=== PATIENT | female | born 1950 | race Caucasian/White ===

== ENCOUNTER 2017-02-23 21:03 | Inpatient (IN) | payer MEDICARE, BC ==
--- NOTE | ~2017-02-23 | HP ---
History And Physical [place] [id number] [place]. [address] NAME: ELIZA REYNA : 48 STATUS : ADM Jorge A PAT#: [id number] AGE: 67 ADM/REG DATE : 02/23/17 MR#: [id number] REPORT SERV DATE: 02/24/17 DICTATED BY: JOY JAMES DATE: 02/24/17 REPORT STATUS : Draft TRANSCRIBED BY: MODL DATE: 02/24/17 DATE OF ADMISSION: 02/23/2017 CHIEF COMPLAINT: A 67-year-old female with dermatomyositis, now presenting with increasing myalgias, weakness, and urinary urgency. HISTORY OF PRESENT ILLNESS: The patient's history was obtained through careful interview with patient and her coupled with review of [facility] medical records. The patient has chronic dermatomyositis. It seems to have been under relatively good control over the last several years though is followed outpatient by Dr. Radha Hernandez, repossession agent, and patient is on chronic steroids for control of this condition as well as monthly IVIG infusions. About 10 days ago, she began to develop increasing urinary frequency with increasing urinary urgency as well and had begun to develop some body aches. She went to see one of her physicians and was placed on Macrobid after urinalysis suggested urinary tract infection. Despite being on Macrobid, the patient has only had continued urinary frequency, urgency, and now has a hot discomfort with her urine. Also, her body aches have worsened. She describes them as mostly in her proximal legs and shoulders and arms as well as her back. She has an element of chronic cramping discomfort but it has acutely worsened by this illness, an aching, cramping quality, 9/10 severity that has been continuous for about 48 hours, and the family states that the patient has really only slept possibly four hours in the last two nights, She has had nausea, but no vomiting, no diarrhea. No fevers or chills. No confusion. No lightheadedness. No abdominal pain. No flank tenderness. No rash. She has chronic shortness of breath related to pulmonary purposes that is stable and a chronic cough that is also stable. No chest pain. REVIEW OF SYSTEMS: Otherwise, a 14-point review of systems was obtained and was negative. PAST MEDICAL HISTORY: 1. Dermatomyositis, seen by Dr. Radha Hernandez. 2. Chronic interstitial lung disease with pulmonary fibrosis, on chronic 3 to 8 L nasal cannula, seen by Dr. Medina. 3. 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 4. Recurrent urinary tract infection with history of sepsis in 11/2015 and 12/2015. She had Klebsiella at greater than 100,000 colonies and a recent urine culture on 02/19/2017 also showed Klebsiella. 5. Hypertension. 6. Leukocytosis, chronically. History And Physical [address] [address] NAME: ELIZA REYNA : [birth year] STATUS : ADM Jorge A PAT#: [id number] AGE: 67 ADM/REG DATE : 02/23/17 MR#: [id number] REPORT SERV DATE: 02/24/17 DICTATED BY: JOY JAMES DATE: 02/24/17 REPORT STATUS : Draft TRANSCRIBED BY: KETURAH DATE: 02/24/17 PAST SURGICAL HISTORY: 1. Hysterectomy with oophorectomy. 2. Cholecystectomy. 3. Partial small bowel resection for small bowel obstruction by Dr. Calvin. 4. Right thyroid mass. Check resection. ALLERGIES: DAPSONE. SOCIAL HISTORY: No tobacco abuse. No alcohol abuse. Next week, the patient will have been to her for 50 years. They live in [place], [place]. They have one son, who lives in the [facility]. They have three grandsons. FAMILY HISTORY: COPD, Parkinson disease, and diabetes. No family history of rheumatological disorder. No polymyositis. CURRENT MEDICATIONS: Include aspirin 81 mg p.o. daily; vitamin D IVIG monthly, last dose was on 02/13/2017; Prevacid 30 mg p.o. daily; Lopressor 25 mg p.o. b.i.d.; Macrobid 100 mg p.o. b.i.d., started on 02/21/2017; Zofran p.r.n.; prednisone 10 mg p.o. b.i.d.; Phenergan 25 mg p.r.n.; Senokot; Forteo 20 mcg subcutaneous in the morning; Ultram 100 mg p.o. q.8 hours p.r.n.; calcium and magnesium supplements. PHYSICAL EXAMINATION: VITAL SIGNS: Temperature 98.2, pulse 86, blood pressure 180/87, respiratory rate 18, and O2 saturation 94% on 3 L nasal cannula. GENERAL: A pleasant, cooperative female. She describes distressed from her cramping discomfort. HEENT: Pupils equal, round, and reactive to light. No conjunctival pallor. No scleral icterus. Nares are patent. Oropharynx is clear of obstruction. Dry mucous membranes. NECK: Trachea midline. No thyromegaly. LYMPH: No cervical lymphadenopathy. No supraclavicular lymphadenopathy. RESPIRATORY: The patient has scattered dry crackles on examination. No rales, no wheezes, a nonlabored respiratory effort. CARDIOVASCULAR: Regular rate and rhythm. No murmurs, rubs, or gallops. No extremity edema is appreciated. ABDOMEN: Soft, nontender, nondistended. No flank tenderness. No hepatosplenomegaly. DERMATOLOGIC: Warm and dry extremities. No pallor, no cyanosis. PSYCHIATRIC: Normal affect. Good mood. Alert and oriented x3. LABORATORY DATA: White blood cell count 12.7, hemoglobin 9.9, hematocrit 33.4, and platelets 343. Sodium 137, potassium 4.6, chloride 97, bicarb 33, BUN 20, creatinine 0.78, glucose 119. Urinalysis shows a large leukocyte esterase, positive nitrites, and greater than 182 white blood cells. Liver enzymes within normal limits. Albumin 2.8. STUDIES: Chest x-ray by my own evaluation shows chronic interstitial lung disease and fibrosis but stable compared to old x-ray. History And Physical [address] [address] NAME: ELIZA REYNA : 48 STATUS : ADM Jorge A PAT#: [id number] AGE: 67 ADM/REG DATE : 02/23/17 MR#: [id number] REPORT SERV DATE: 02/24/17 DICTATED BY: JOY JAMES DATE: 02/24/17 REPORT STATUS : Draft TRANSCRIBED BY: KETURAH DATE: 02/24/17 ASSESSMENT AND PLAN: 1. Urinary tract infection. Check urine culture. Place on IV antibiotics. The patient "failed" outpatient Macrobid. 2. Dermatomyositis, seen outpatient by Dr. Radha Hernandez, repossession agent. Check an ESR. Check CPK. Check myoglobin. The patient on chronic steroids and chronic monthly IVIG. 3. Pulmonary fibrosis, oxygen dependent, seems stable. 4. Myalgias, question possible activity of polymyositis or myalgias caused by urinary tract infection. We will monitor closely. KPL/MODL Joy James M.D. / [id number] CC: Steve Ryan Jr, MD Ted Scoggins, M.D. Suzan E House, M.D.
--- NOTE | ~2017-02-23 | DS ---
Discharge Summary [facility] [address] [place]. [address] NAME: ELZIA REYNA : 48 STATUS : DIS IN PAT#: [id number] AGE: 67 ADM/REG DATE : 02/24/17 MR#: [id number] REPORT SERV DATE: 03/01/17 DICTATED BY: GURMEET FRIAS DATE: 02/28/17 REPORT STATUS : Draft TRANSCRIBED BY: KETURAH DATE: 02/28/17 ADMISSION DATE: 02/24/2017 DISCHARGE DATE: 02/28/2017 PROCEDURES DONE: 1. On 02/23/2017, chest x-ray: No acute cardiopulmonary disease. Stable right Port-A-Cath with tip over the SVC. Stable cholecystectomy. Lung volumes with findings suggestive of chronic interstitial lower lobe lung disease. Review of the chest CT in 02/2017, shows severe lower lobe interstitial fibrosis with honeycombing. 2. On 02/25/2017, 2D echo: Normal left ventricular systolic function with calculated EF of 55%. Mild left ventricular hypertrophy. Mild diastolic dysfunction. Normal right ventricular size and systolic function. Mild aortic and tricuspid valvular regurgitation. Right ventricular systolic pressure consistent with moderate pulmonary hypertension. Right ventricular systolic pressure is 47 mmHg. REASON FOR ADMISSION: Increasing weakness, myalgias, and urinary frequency. HISTORY OF HOSPITAL STAY: A 67-year-old white female with past medical history of chronic interstitial lung disease with pulmonary fibrosis, dermatomyositis, history of CMV colitis, hypertension, presenting with weakness, increasing myalgias, and urinary urgency. The patient has been admitted for further evaluation of her chief complaint. The patient is on longstanding steroids secondary to her dermatomyositis. The patient does have chronic oxygen secondary to chronic interstitial lung disease. Unfortunately, the patient started having weakness which was much more significant since the patient has a chronic interstitial lung disease with pulmonary fibrosis. The patient states that her oxygen requirements were high during walking and mobilization, but unfortunately her weakness has made mobility even worse. The patient turned out to have a UTI secondary to Klebsiella pneumonia. The patient was being treated the E. coli on an outpatient basis. The patient was started on nitrofurantoin. Unfortunately, the patient's Klebsiella pneumonia was resistant. The patient was started on Levaquin. Eventually, the patient's dysuria gradually resolved. DISPOSITION: The patient is feeling fine, no complaints. ACTIVITY: As tolerated. DIET: Regular. INSTRUCTIONS UPON DISCHARGE: The patient to follow with Rheumatology within one to two weeks' time. MEDICATIONS UPON DISCHARGE: 1. Norvasc 5 mg p.o. daily, dispensed 30. 2. Metoprolol 50 mg p.o. daily. 3. Levaquin 750 mg p.o. daily x5 days. 4. Florastor 250 mg p.o. daily, dispensed 10. 5. Aspirin 81 mg p.o. daily. Discharge Summary [address] [address] NAME: ELIZA REYNA : 48 STATUS : DIS IN PAT#: [id number] AGE: 67 ADM/REG DATE : 02/24/17 MR#: [id number] REPORT SERV DATE: 03/01/17 DICTATED BY: GURMEET FRIAS DATE: 02/28/17 REPORT STATUS : Draft TRANSCRIBED BY: KETURAH DATE: 02/28/17 6. Vitamin D3 2,000 units p.o. daily. 7. Senokot one tablet p.o. daily p.r.n. for constipation. 8. Prednisone 10 mg p.o. b.i.d. 9. Prevacid 30 mg p.o. daily. 10.Forteo pen 20 mcg subcu daily. 11.Zofran 8 mg p.o. daily p.r.n. 12.Phenergan 25 mg p.o. q.8 hours p.r.n. 13.Calcium-magnesium 200/50 mg one tablet p.o. daily. 14.Immunoglobulin IV daily x2 days, every 28 days. 15.Ultram 100 mg p.o. q.8 hours p.r.n. for pain. 16.Phenergan 25 mg per rectal q.8 hours p.r.n. DIAGNOSES UPON DISCHARGE: 1. Myalgias, weakness, urinary urgency secondary to urinary tract infection. 2. Urinary tract infection secondary to Klebsiella pneumonia. 3. Constipation. 4. Pulmonary fibrosis. 5. Dermatomyositis. 6. Chronic respiratory failure secondary to pulmonary fibrosis. 7. Hypertension. DEISY/KETURAH Gurmeet Frias MD / [id number] CC: MD Tyler Bran M.D.
[~2017-02-23 21:03] MED LIST: ACET500CAP PO; ACETSUP650 PR; ADVIL PO; AFRIN15 NAS; AMB5 PO; ASAB PO; ATROVENTUD INH; AYR SALINE NAS; BACDS PO; BION TEARS OPH; CALCIUM PO; CALCIUM/MAGNESIUM PO; CALTRA600D PO; CELLCEPT5 PO; DSS PO; DULERA 200 MCG/13 GM INH; DUONEB INH; FLONASE NAS; FOLIC PO; FOSAMAX70 MG PO; HALF81 PO; HEPARIN INJ5000 U/ML IV; HUMI PO; HYCODAN1 M1 PO; IVIG IV; IVIGLIQ IJ; LOP25 PO; MACRODANTIN 10100 MG PO; MAG PO; MELA3 PO; MINOCIN100 PO; MIRALAXPKT PO; MOMUD PO; MTX2.5 PO; MULTI-VIT HP OR; MYCOSCROI TOP; N-ACETYL-L-CYSTEINE PO; NINTEDANIB PO; NORCO1 TA1 PO; OFEV PO; P10 PO; P20 PO; P5 PO; PLAQ200B PO; PR25 PO; PREV30 PO; PRILO PO; PRIN10 PO; PROAIR HFA INH; PROGRAF1 PO; PROTONIX PO; STOOL SOFTEN100 MG PO; SULFAMETHOXAZOLE; SYMBICORT 160/41 INH INH; T PO; TESS PO; TUSSIONEX1 ML PO; ULTRAM50 PO; VALCYTE PO; VENTOLIN HFA INH; VITAMIN D1000 UNI1 PO; VITAMIN D2000 UNIT PO; VITAMIN D31000 UNIT PO; VITD PO; ZANTAC 150 PO; ZANTAC300 MG PO; ZITH250 PO; ZOFRAN4 PO; ZOFRAN8 PO; [UNRECOGNIZED DRUG - OTHER] IJ; [UNRECOGNIZED DRUG - OTHER] PO; [UNRECOGNIZED DRUG - OTHER] PO
[2017-02-23 22:49] LABS: BASOPHILS 0 %; EOSINOPHILS 0 %; HEMATOCRIT 33.4 % (36.0-48.0); HEMOGLOBIN 9.9 g/dL (12.0-16.0); IMMATURE GRANULOCYTES 0.3 %; IMMATURE GRANULOCYTES ABSOLUTE 0.04 10/3/uL (0.0-0.11); LYMPHOCYTES 10.7 %; LYMPHOCYTES ABSOLUTE 1.36 10/3/uL (0.67-4.30); MEAN CORPUS HGB CONC 29.6 g/dL (32.0-36.0); MEAN CORPUSCULAR HEMOGLOB 23.9 pg (26.0-34.0); MEAN CORPUSCULAR VOLUME 80.5 fL (80-100); MEAN PLATELET VOLUME 8.8 fL (9.2-13.0); MONOCYTES ABSOLUTE 0.64 10/3/uL (0.21-1.20); NEUTROPHILS ABSOLUTE 10.68 10/3/uL (2.02-8.40); PLATELET COUNT 343 10/3/uL (150-400); RBC DISTRIBUTION WIDTH 18.1 % (12.0-16.0); RED CELL COUNT 4.15 10/6/uL (4.0-5.6)
[2017-02-23 22:52] LABS: ER CBC TAT 0 Hrs 08 Mins; MANUAL DIFF NO %; WHITE BLOOD CELLS 12.7 10/3/uL (4.5-10.5)
[2017-02-23 23:01] LABS: ASCORBIC ACID (UR NOT ORDER) NEG (NEG); BILIRUBIN, URINE NEGATIVE (NEG); KETONE, URINE TRACE MG/DL (NEG); LEUKOCYTE ESTERASE(NOT OR LARGE (NEG); NITRITE (URINE) POS (NEG); WBC (NOT ORDERED) (RFLEX) > 182 (0-5)
[2017-02-23 23:08] LABS: A/G RATIO 0.5 (0.7-1.9); ALBUMIN 2.8 G/DL (3.5-5.0); ALKALINE PHOSPHATASE 71 U/L (45-117); BUN (BLOOD UREA NITROGEN) 20 MG/DL (6-23); CALCIUM, SERUM 8.8 MG/DL (8.5-10.4); CHLORIDE, SERUM 97 MMOL/L (96-112); CO2 (CARBON DIOXIDE) 33 MMOL/L (24-34); CREATININE 0.78 MG/DL (0.55-1.02); GFR AFRICAN AMERICAN 91 ML/MIN (>=60); GFR NON AFRICAN AMERICAN 78 ML/MIN (>=60); GLOBULIN 5.1 G/DL (2.5-4.1); GLUCOSE, SERUM 119 MG/DL (60-99); POTASSIUM, SERUM 4.6 MMOL/L (3.5-5.3); SGOT(AST) 20 U/L (5-40); SGPT(ALT) 23 U/L (5-65); SODIUM, SERUM 137 MMOL/L (135-148); TOTAL BILIRUBIN 0.4 MG/DL (0-1.2); TOTAL PROTEIN 7.9 G/DL (6.0-8.5)
[2017-02-23] MEDS ORDERED: MACROBID PO (23:59)
[2017-02-24] MEDS ORDERED: P10 PO (00:01)
[2017-02-24] MEDS ORDERED: LOP25 PO (00:03)
[2017-02-24] MEDS ORDERED: FORTEO SC (00:04)
[2017-02-24] MEDS ORDERED: PREV30 PO (00:04)
[2017-02-24] MEDS ORDERED: PR25 PO (00:05)
[2017-02-24] MEDS ORDERED: ZOFRAN8 PO (00:05)
[2017-02-24] MEDS ORDERED: ASAB PO (00:05)
[2017-02-24] MEDS ORDERED: VITAMIN D31000 UNIT PO (00:06)
[2017-02-24] MEDS ORDERED: MAG PO (00:06)
[2017-02-24] MEDS ORDERED: CAL PO (00:06)
[2017-02-24] MEDS ORDERED: IVIGLIQ IV (00:07)
[2017-02-24] MEDS ORDERED: ULTRAM50 PO (00:09)
[2017-02-24] MEDS ORDERED: PR25R PR (00:10)
[2017-02-24] MEDS ORDERED: SENTAB PO (00:12)
[2017-02-24 05:23] LABS: BASOPHILS 0 %; EOSINOPHILS 0 %; HEMATOCRIT 32.8 % (36.0-48.0); HEMOGLOBIN 9.8 g/dL (12.0-16.0); IMMATURE GRANULOCYTES 0.4 %; IMMATURE GRANULOCYTES ABSOLUTE 0.04 10/3/uL (0.0-0.11); LYMPHOCYTES 14.7 %; LYMPHOCYTES ABSOLUTE 1.63 10/3/uL (0.67-4.30); MEAN CORPUS HGB CONC 29.9 g/dL (32.0-36.0); MEAN CORPUSCULAR VOLUME 80.4 fL (80-100); MEAN PLATELET VOLUME 8.9 fL (9.2-13.0); MONOCYTES 10.1 %; MONOCYTES ABSOLUTE 1.12 10/3/uL (0.21-1.20); NEUTROPHILS 74.8 %; NEUTROPHILS ABSOLUTE 8.27 10/3/uL (2.02-8.40); PLATELET COUNT 320 10/3/uL (150-400); RBC DISTRIBUTION WIDTH 18.2 % (12.0-16.0); RED CELL COUNT 4.08 10/6/uL (4.0-5.6); WHITE BLOOD CELLS 11.1 10/3/uL (4.5-10.5)
[2017-02-24 05:26] LABS: MANUAL DIFF NO %
[2017-02-24 05:32] LABS: PARTIAL THROMBO TIME 26.8 SEC (22.5-37.2); PROTIME (NOT ORD) 12.9 SEC (12.0-14.5)
[2017-02-24 05:53] LABS: A/G RATIO 0.5 (0.7-1.9); ALBUMIN 2.5 G/DL (3.5-5.0); ALKALINE PHOSPHATASE 68 U/L (45-117); BUN (BLOOD UREA NITROGEN) 16 MG/DL (6-23); C-REACTIVE PROTEIN 92.6 MG/L (<8.0); CALCIUM, SERUM 8.6 MG/DL (8.5-10.4); CHLORIDE, SERUM 103 MMOL/L (96-112); CO2 (CARBON DIOXIDE) 28 MMOL/L (24-34); CPK 24 U/L (0-200); GFR AFRICAN AMERICAN 109 ML/MIN (>=60); GFR NON AFRICAN AMERICAN 94 ML/MIN (>=60); GLOBULIN 5.1 G/DL (2.5-4.1); GLUCOSE, SERUM 81 MG/DL (60-99); MYOGLOBIN, SERUM 23 NG/ML (0-85); SGOT(AST) 22 U/L (5-40); SGPT(ALT) 20 U/L (5-65); SODIUM, SERUM 141 MMOL/L (135-148); TOTAL BILIRUBIN 0.3 MG/DL (0-1.2); TOTAL PROTEIN 7.6 G/DL (6.0-8.5); ULTRASENSITIVE TSH 0.227 MCIU/ML (0.358-3.740)
[2017-02-24 06:18] LABS: SED RATE 84 MM/HR (0-20)
[2017-02-27 06:00] LABS: BASOPHILS 0.1 %; BASOPHILS ABSOLUTE 0.01 10/3/uL (0.0-0.16); EOSINOPHILS 1.1 %; EOSINOPHILS ABSOLUTE 0.11 10/3/uL (0.0-0.53); HEMATOCRIT 37.3 % (36.0-48.0); HEMOGLOBIN 11.1 g/dL (12.0-16.0); IMMATURE GRANULOCYTES 0.6 %; IMMATURE GRANULOCYTES ABSOLUTE 0.06 10/3/uL (0.0-0.11); LYMPHOCYTES ABSOLUTE 2.88 10/3/uL (0.67-4.30); MANUAL DIFF NO %; MEAN CORPUS HGB CONC 29.8 g/dL (32.0-36.0); MEAN CORPUSCULAR VOLUME 80.6 fL (80-100); MEAN PLATELET VOLUME 8.8 fL (9.2-13.0); MONOCYTES 10.8 %; MONOCYTES ABSOLUTE 1.11 10/3/uL (0.21-1.20); NEUTROPHILS 59.4 %; NEUTROPHILS ABSOLUTE 6.13 10/3/uL (2.02-8.40); PLATELET COUNT 390 10/3/uL (150-400); RBC DISTRIBUTION WIDTH 17.8 % (12.0-16.0); RED CELL COUNT 4.63 10/6/uL (4.0-5.6); WHITE BLOOD CELLS 10.3 10/3/uL (4.5-10.5)
[2017-02-27 06:20] LABS: BUN (BLOOD UREA NITROGEN) 17 MG/DL (6-23); CALCIUM, SERUM 9.2 MG/DL (8.5-10.4); CHLORIDE, SERUM 97 MMOL/L (96-112); CREATININE 0.69 MG/DL (0.55-1.02); GFR AFRICAN AMERICAN 104 ML/MIN (>=60); GFR NON AFRICAN AMERICAN 89 ML/MIN (>=60); GLUCOSE, SERUM 76 MG/DL (60-99); POTASSIUM, SERUM 3.8 MMOL/L (3.5-5.3); SODIUM, SERUM 138 MMOL/L (135-148)
[2017-02-27 06:21] LABS: CO2 (CARBON DIOXIDE) 33 MMOL/L (24-34)
[2017-02-28 05:33] LABS: HEMATOCRIT 34.1 % (36.0-48.0); HEMOGLOBIN 10.2 g/dL (12.0-16.0); MEAN CORPUS HGB CONC 29.9 g/dL (32.0-36.0); MEAN CORPUSCULAR VOLUME 80.2 fL (80-100); MEAN PLATELET VOLUME 9.1 fL (9.2-13.0); RED CELL COUNT 4.25 10/6/uL (4.0-5.6); WHITE BLOOD CELLS 11.3 10/3/uL (4.5-10.5)
[2017-02-28 05:37] LABS: MANUAL DIFF YES %; PLATELET COUNT 509 10/3/uL (150-400)
[2017-02-28 05:45] LABS: A/G RATIO 0.6 (0.7-1.9); ALBUMIN 2.7 G/DL (3.5-5.0); ALKALINE PHOSPHATASE 79 U/L (45-117); CALCIUM, SERUM 9.1 MG/DL (8.5-10.4); CHLORIDE, SERUM 99 MMOL/L (96-112); CO2 (CARBON DIOXIDE) 32 MMOL/L (24-34); CREATININE 0.74 MG/DL (0.55-1.02); GFR AFRICAN AMERICAN 96 ML/MIN (>=60); GFR NON AFRICAN AMERICAN 83 ML/MIN (>=60); GLOBULIN 4.8 G/DL (2.5-4.1); PHOSPHORUS, SERUM 2.5 MG/DL (2.5-4.5); SGOT(AST) 25 U/L (5-40); SGPT(ALT) 24 U/L (5-65); SODIUM, SERUM 137 MMOL/L (135-148); TOTAL BILIRUBIN 0.2 MG/DL (0-1.2); TOTAL PROTEIN 7.5 G/DL (6.0-8.5)
[2017-02-28 05:47] LABS: BUN (BLOOD UREA NITROGEN) 21 MG/DL (6-23); GLUCOSE, SERUM 102 MG/DL (60-99); POTASSIUM, SERUM 4.6 MMOL/L (3.5-5.3)
[2017-02-28 05:55] LABS: ANISOCYTOSIS 1+ (5-10/OIF) (0-5/OIF); BAND NEUTROPHILS 4 %; HYPOCHROMIA 1+ (3-10/OIF) (0-2/OIF); LYMPHOCYTES 18 %; LYMPHOCYTES ABSOLUTE (CALC) 2.03 10/3/uL (0.67-4.30); MONOCYTES 6 %; MONOCYTES ABSOLUTE (CALC) 0.68 10/3/uL (0.21-1.20); NEUTROPHILS ABSOLUTE (CALC) 8.59 10/3/uL (2.02-8.40); PLATELET ESTIMATE SLT INC (ADEQUATE); SEGMENTED NEUTROPHIL (0) 72 %; TOTAL NUCLEATED CELLS 100
[2017-02-28] MEDS ORDERED: NORV5 PO (17:48)
[2017-02-28] MEDS ORDERED: FLORASTOR250 MG PO (17:58)
[2017-02-28] MEDS ORDERED: LEVAQUIN750 MG PO (17:58)
[2017-08-02] MEDS ORDERED: P20 PO (14:47)
[2017-08-02] MEDS ORDERED: LOP50 PO (14:49)
[2017-08-02] MEDS ORDERED: NORV5 PO (14:51)
[2017-08-02] MEDS ORDERED: ULTRAM50 PO (14:54)
[2017-08-02] MEDS ORDERED: QUINACRINE PO (15:03)
[2017-08-02] MEDS ORDERED: PREV30 PO (15:04)
[2017-08-02] MEDS ORDERED: PR25 PO (15:09)
[2017-08-02] MEDS ORDERED: HALF81 PO (15:10)
[2017-08-02] MEDS ORDERED: ZOFRAN8 PO (15:10)
[2017-08-02] MEDS ORDERED: MAGNEBIND PO (15:11)
[2017-08-02] MEDS ORDERED: VITAMIN D31000 UNIT PO (15:11)
[2017-08-02] MEDS ORDERED: MIRALAX POWDER1 PKT PO (15:12)
[2017-08-02] MEDS ORDERED: ACTHAR (15:13)
== END 2017-02-28 19:18 | disposition home or self-care (01) | DRG 690 ==
LOC: ER 21:03 → CDU1 23:59 → CDU2 02-24 00:40 → 7NO 02-26 20:27
PROVIDERS: Emergency Medicine; Hospitalist; Internal Medicine; Nurse Practitioner Family
DX: N39.0 Urinary tract infection, site not specified (principal); J96.10 Chronic respiratory failure, unspecified whether with hypoxia or hypercapnia; M33.90 Dermatopolymyositis, unspecified, organ involvement unspecified; J84.10 Pulmonary fibrosis, unspecified; M79.1 Myalgia; Z87.440 Personal history of urinary (tract) infections; Z90.49 Acquired absence of other specified parts of digestive tract; K59.00 Constipation, unspecified; Z99.81 Dependence on supplemental oxygen; I10 Essential (primary) hypertension; Z79.82 Long term (current) use of aspirin; Z79.52 Long term (current) use of systemic steroids; R35.0 Frequency of micturition; B96.1 Klebsiella pneumoniae [K. pneumoniae] as the cause of diseases classified elsewhere
CPT/HCPCS: 71010; 80048; 80053; 81001; 82550; 83735; 83874; 84100; 84443; 85025; 85610; 85652; 85730; 86140; 87040; 87077; 87086; 87186; 93306; 96374; 96375; 97161-GP; 99284; A9270-GY; G8978-CJ-GP; G8979-CJ-GP; G8980-CJ-GP; J1170; J1956; J2405; J2765; J2800